=== PATIENT | male | born 1985 | race Caucasian/White ===

== ENCOUNTER 2023-01-21 08:35 | Inpatient (IN) | payer MEDICAID, SELFPAY ==
[2023-01-21 08:42] VITALS: BP 130/82; PULSE 76; RESP 16; TEMP 37.1; O2SAT 97
[2023-01-21 08:43] VITALS: BMI 24.2
--- NOTE | 2023-01-21 11:03 | PC.NURSE ---
PT IS A DIRECT ADMIT FROM [facility]. PT WS PREVIOUSLY DISCHARGED FROM [facility] 3 DAYS AGO. UPON ADMIT TO THE UNIT PT STATED I JUST WANT TO . PT ENDORSES MARIJUANA USE. PT ENDORSES HEARING VOICES THAT CALL HIM MIKE AND SEEING PLACEMENT AND THINGS FOR PEOPLE PT GOT OUT OF [facility] ABOUT A MONTH AGO AND STATES THAT HE HAS BEEN HOMELESS AND IN MULTIPLE HOSPITALS FOR HELP SINCE THEN. PT STATES THAT PEOPLE SUCK AND PEOPLE NEED TO GET RIGHT WITH GOD. PT DOES APPEAR TO BE HYPER HINDU AT THIS TIME.
[2023-01-21 14:00] VITALS: BP 135/74; PULSE 78; RESP 16; TEMP 36.9; O2SAT 95
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
[2023-01-21] MEDS: ibuprofen 600 mg Tablet PO (19:12)
[2023-01-21 20:09] VITALS: BP 108/70; PULSE 117; RESP 18; TEMP 36.8; O2SAT 94
[2023-01-22 06:00] VITALS: BP 101/68; PULSE 85; RESP 18; TEMP 36.8; O2SAT 95
[2023-01-22] MEDS: ibuprofen 600 mg Tablet PO (13:32)
[2023-01-22 14:00] VITALS: BP 111/73; PULSE 73; RESP 16; TEMP 36.8; O2SAT 98
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
[2023-01-22] MEDS: sertraline 50 mg Tablet 25 MG PO (17:36)
[2023-01-22 20:41] VITALS: BP 110/70; PULSE 73; RESP 18; TEMP 36.7; O2SAT 98
[2023-01-23 06:00] VITALS: BP 111/69; PULSE 74; RESP 17; O2SAT 95
[2023-01-23] MEDS: sertraline 50 mg Tablet 25 MG PO (08:17)
[2023-01-23 14:00] VITALS: BP 105/62; PULSE 72; RESP 16; TEMP 36.6; O2SAT 97
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
[2023-01-23] MEDS: ibuprofen 600 mg Tablet PO (19:39)
[2023-01-23 20:33] VITALS: BP 124/85; PULSE 75; RESP 16; TEMP 36.7; O2SAT 94
[2023-01-24 06:00] VITALS: BP 104/62; PULSE 70; RESP 18; TEMP 36.8; O2SAT 97
[2023-01-24] MEDS: sertraline 50 mg Tablet 25 MG PO ×2 (07:22→14:24)
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
[2023-01-24 14:00] VITALS: BP 105/69; PULSE 82; RESP 15; TEMP 36.5; O2SAT 97
[2023-01-24 20:27] VITALS: BP 107/70; PULSE 69; RESP 18; TEMP 36.9; O2SAT 97
[2023-01-25 06:00] VITALS: BP 96/67; PULSE 87; RESP 16; TEMP 36.7; O2SAT 97
[2023-01-25] MEDS: sertraline 50 mg Tablet PO (07:57)
[2023-01-25 14:00] VITALS: BP 115/72; PULSE 72; RESP 15; TEMP 37.1; O2SAT 95
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
[2023-01-25] MEDS: ibuprofen 600 mg Tablet PO (18:21)
[2023-01-25 20:02] VITALS: BP 114/68; PULSE 76; RESP 20; TEMP 37.3; O2SAT 95
[2023-01-26 06:00] VITALS: BP 100/65; PULSE 69; RESP 14; TEMP 36.9; O2SAT 97
[2023-01-26] MEDS: sertraline 50 mg Tablet 75 MG PO (08:34)
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
[2023-01-26 14:00] VITALS: BP 102/66; PULSE 77; RESP 16; TEMP 37.1; O2SAT 96
[2023-01-26] MEDS: ibuprofen 600 mg Tablet PO (19:17)
[2023-01-26 22:00] VITALS: BP 107/67; PULSE 102; RESP 18; TEMP 36.7; O2SAT 98
[2023-01-27 06:00] VITALS: BP 102/66; PULSE 67; RESP 20; TEMP 36.5; O2SAT 96
[2023-01-27] MEDS: sertraline 50 mg Tablet 75 MG PO (08:53)
[2023-01-27] MEDS: ibuprofen 600 mg Tablet PO ×2 (12:24→16:38)
[2023-01-27 14:00] VITALS: BP 115/72; PULSE 71; RESP 18; TEMP 36.9; O2SAT 97
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
[2023-01-27 20:04] VITALS: BP 114/78; PULSE 68; RESP 18; TEMP 36.8; O2SAT 95
[2023-01-28 06:00] VITALS: BP 104/66; PULSE 76; RESP 16; O2SAT 95
[2023-01-28] MEDS: sertraline 50 mg Tablet 100 MG PO (08:02)
[2023-01-28] MEDS: ibuprofen 600 mg Tablet PO (11:38)
[2023-01-28 13:57] VITALS: BP 104/66; PULSE 76; RESP 16; TEMP 37; O2SAT 95
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
== END 2023-01-28 15:24 | disposition home or self-care (01) | DRG 881 ==
PROVIDERS: Admitting Provider Psychiatry & Neurology Psychiatry; Visit Provider Psychiatry & Neurology Psychiatry
DX: F32.A Depression, unspecified (principal); R45.851 Suicidal ideations; Z59.00 Homelessness unspecified; R44.2 Other hallucinations; Z62.810 Personal history of physical and sexual abuse in childhood; Z62.811 Personal history of psychological abuse in childhood; F43.10 Post-traumatic stress disorder, unspecified; F94.1 Reactive attachment disorder of childhood; Z91.148 Patient's other noncompliance with medication regimen for other reason
CPT/HCPCS: 97150; 97165